=== PATIENT | male | born 1985 | race Hispanic/Latino ===

== ENCOUNTER 2017-11-07 17:36 | Emergency (ER) | payer SELFPAY | END 2017-11-07 18:04 | disposition left against medical advice (07) | LOC: EDH 17:36 | DX: R10.9 Unspecified abdominal pain (principal); Z53.21 Procedure and treatment not carried out due to patient leaving prior to being seen by health care provider ==

== ENCOUNTER 2018-10-02 12:27 | Emergency (ER) | payer SELFPAY ==
[2018-10-02] MEDS ORDERED: KETOROLAC TROMETHAMINE 60 MG/2 ML VIAL ONE (14:03)
== END 2018-10-02 14:53 | disposition home or self-care (01) ==
LOC: EDH 12:27
DX: S30.0XXA Contusion of lower back and pelvis, initial encounter (principal); W18.39XA Other fall on same level, initial encounter; Y93.01 Activity, walking, marching and hiking; Y92.89 Other specified places as the place of occurrence of the external cause; Y99.8 Other external cause status
CPT/HCPCS: 72100; 72170; 96372; 99283; J1885

== ENCOUNTER 2019-03-13 14:54 | Inpatient (IN) | payer SELFPAY, OTHER | END 2019-03-17 12:56 | disposition left against medical advice (07) | LOC: EDH 14:54 → EDHIP 14:55 → 2CH 16:35 | DX: F14.10 Cocaine abuse, uncomplicated (principal); F10.129 Alcohol abuse with intoxication, unspecified ==

== ENCOUNTER 2019-12-17 12:03 | Emergency (ER) | payer SELFPAY ==
[2019-12-17] MEDS ORDERED: KETOROLAC TROMETHAMINE 60 MG/2 ML VIAL ONE (12:42)
== END 2019-12-17 13:28 | disposition home or self-care (01) ==
LOC: EDH 12:03
DX: M54.5 Low back pain (principal)
CPT/HCPCS: 72100; 96372; 99283; J1885

== ENCOUNTER 2022-09-02 22:03 | Emergency (ER) | payer OTHER ==
[~2022-09-02] VITALS: Ht 180.3 cm; Wt 96.2 kg
[2022-09-03] MEDS ORDERED: AZIT500T PO (01:25)
[2022-09-03 01:38] VITALS: BP 120/81
== END 2022-09-03 01:39 | disposition home or self-care (01) ==
LOC: EDH 22:03
DX: J32.9 Chronic sinusitis, unspecified (principal); J06.9 Acute upper respiratory infection, unspecified; Z20.822 Contact with and (suspected) exposure to COVID-19
CPT/HCPCS: 99283; 87635; 87804 ×2; C9803

== ENCOUNTER 2022-09-26 09:47 | Emergency (ER) | payer OTHER ==
[~2022-09-26] VITALS: Ht 180.3 cm; Wt 94.3 kg
[~2022-09-26 09:47] MED LIST: AZIT500T PO
[2022-09-26 09:49] VITALS: BP 112/72
[2022-09-26] MEDS ORDERED: KETOROLAC 15MG/ML VIAL (15MG/ML) ONE (10:23)
[2022-09-26] MEDS ORDERED: DEXAMETHASONE SOD PHOSPHATE 4 MG/ML 1ML VIAL ONE (10:24)
[2022-09-26] MEDS ORDERED: DEXAMETHASONE SOD PHOSPHATE 4 MG/ML 1ML VIAL IVP ONE (10:30)
[2022-09-26] MEDS ORDERED: KETOROLAC 15MG/ML VIAL (15MG/ML) IV ONE (10:30)
[2022-09-26 10:45] LABS: BASOPHILS % (AUTO) 0.4 % (0.0-5.0); EOSINOPHILS % (AUTO) 1.6 % (0.0-8.0); HEMATOCRIT 44.1 % (42-54); LYMPHOCYTES % (AUTO) 13.3 % (21.0-51.0); MEAN CORPUSCULAR HEMOGLOBIN 29.6 pg (27.0-33.0); MEAN CORPUSCULAR HGB CONC 33.3 g/dL (32.0-36.0); MEAN CORPUSCULAR VOLUME 88.7 fL (79-99); MONOCYTES % (AUTO) 14.5 % (3.0-13.0); NEUTROPHILS % (AUTO) 69.7 % (40.0-77.0); PLATELET COUNT (AUTO) 197 K/uL (130-400); RED BLOOD CELL COUNT(AUTO) 4.97 MIL/uL (4.50-6.20); RED CELL DISTRIBUTION WIDTH 12.5 % (11.0-15.5); WHITE BLOOD COUNT (AUTO) 7.7 K/uL (4.8-10.8)
[2022-09-26 10:57] LABS: ALBUMIN 2.8 g/dL (3.5-5.0); CREATININE 0.8 mg/dL (0.5-1.5); TOTAL PROTEIN, SERUM 6.6 g/dL (6.0-8.3)
[2022-09-26] MEDS ORDERED: METH4TAB3 PO (11:19)
[2022-09-26] MEDS ORDERED: NAPR-1180 PO (11:19)
== END 2022-09-26 11:29 | disposition home or self-care (01) ==
LOC: EDH 09:47
DX: M25.571 Pain in right ankle and joints of right foot (principal); M25.572 Pain in left ankle and joints of left foot; M19.072 Primary osteoarthritis, left ankle and foot; M19.071 Primary osteoarthritis, right ankle and foot
CPT/HCPCS: 99284; 96374; 96375; 80053; 85025; 86140; 36415; J1100; J1885

== ENCOUNTER 2024-07-01 22:33 | Emergency (ER) | payer BC ==
[~2024-07-01] VITALS: Ht 180.3 cm; Wt 96.2 kg
[~2024-07-01 22:33] MED LIST changes: +METH4TAB3 PO; +NAPR-1180 PO
[2024-07-01 22:34] VITALS: BP 129/81; PULSE 83; RESP 16; TEMP 97.2
[2024-07-01] MEDS ORDERED: morPHINE 2 MG SYG IVP STA (22:47)
[2024-07-01] MEDS ORDERED: ondanSETRON 4MG INJ IVP STA (22:47)
--- NOTE | 2024-07-01 23:25 | ERN ---
ED Note History of Present Illness Stated Complaint: " HERNIA PAIN" Chief Complaint: Abdominal Pain Time Seen by MD: 22:35 Time Seen by Midlevel: 22:40 Dictation: 39-year-old male coming in complaining of hernia pain. Patient states it has been going on for two months, has seen the PCP but states did not set him up until September. Patient states last BM was yesterday, and vomited today 4 times. Denies any other medical history. Allergies: Coded Allergies: No Known Drug Allergies (Unverified Allergy, Unknown, 03/13/19) Home Meds Active Scripts Methylprednisolone (Medrol) 4 Mg Tab.ds.pk, 4 MG PO AD for 5 Days, #1 KIT Prov:NIURKA ABEBE MD 09/26/22 Naproxen (Naprosyn) 500 Mg Tablet, 500 MG PO BIDPC for 15 Days, #30 TAB 0 Refills Prov:NIURKA ABEBE MD 09/26/22 Azithromycin (Zithromax) 500 Mg Tablet, 500 MG PO DAILY for 5 Days, #6 TAB 2 tablets day 1 , 1 tablet day 2 througyh 5 Prov:SULY LAN MD 09/03/22 Past Medical History Past Medical History: Other Additional Past Medical Hx: ABD HERNIA Surgical History: None Social History: Negative, Lives with family Review of System Dictation Constitutional: Negative for fever,chills, and weight loss Eyes: Negative for injury, pain,redness, and discharge ENT: Negative for injury,pain or swelling Cardiovascular: Negative for chest pain, palpitations, and edema Respiratory: Negative for shortness of breath, cough, and wheezing, Abdomen/GI: Positive for abdominal pain, nausea, vomiting, no diarrhea, and no constipation Back: Negative for injury and pain : Negative for injury, bleeding and discharge MS/Extremity: Negative for injury and deformity Skin: Negative for rash, and discoloration Neuro: Negative for headache, weakness, numbness, tingling, and seizure Psych: Negative for suicide ideation, homicidal ideation, and hallucinations Review of Systems: was completed Initial Vital Sign VS Vital Signs Date Time Temp Pulse Resp B/P (MAP) Pulse Ox O2 Delivery O2 Flow Rate FiO2 07/01/24 22:34 97.2 83 16 129/81 99 Room Air Physical Exam Dictation General: awake, alert, NAD Head/Face: Normocephalic, atraumatic Eyes: PERRL, EOMI, vision at baseline ENT: oral cavity clear, TMs clear, no signs of infection Neck: Trachea midline, supple, no nuchal rigidity Cardiovascular: RRR, normal S1/S2, No MRGs, no JVD Respiratory: CTAB, no respiratory distress, No rales or wheezes Abdomen: Soft, non-tender, non-distended, there is a protrusion along the umbilical area consistent with a hernia, normal bowel sounds, no guarding or rebound. Skin: Warm, dry, normal turgor, no rash MS/Extremity: Pulses equal, no cyanosis, neurovascular intact, FROM Neuro: COAx4, GCS 15, strength 5/5, CN 2-12 intact, normal cerebellar exam, normal gait, Psych: Normal behavior, mood, and affect normal Results (Laboratory/Radiology) Labs Reviewed?: Yes ED Course ED Course Orders Procedure Category Date Status Time Morphine 2mg Syg PHA 07/01/24 Complete (Morphine 2mg Syg) 22:47 Ondansetron 4mg Inj PHA 07/01/24 Complete (Zofran 4mg Inj) 22:47 Current Medications Medications (Trade) Dose Ordered Sig/Felicia Route PRN Reason Start Time Stop Time Status Last Admin Dose Admin Morphine Sulfate (morPHINE 2MG SYG) 2 mg ONCE STAT IVP 07/01/24 22:47 07/01/24 22:48 DC Ondansetron HCl (zoFRAN 4MG INJ) 4 mg ONCE STAT IVP 07/01/24 22:47 07/01/24 22:48 DC Vital Signs Date Time Temp Pulse Resp B/P (MAP) Pulse Ox O2 Delivery O2 Flow Rate FiO2 07/01/24 22:34 97.2 83 16 129/81 99 Room Air Medical Decision Making MDM MDM: 39-year-old male coming in complaining of hernia pain. Patient states it has been going on for two months, has seen the PCP but states did not set him up until September. Patient states last BM was yesterday, and vomited today 4 times. Denies any other medical history. Patient decided to leave AMA [id number], his children were discharged and stated he felt better so he signed out AMA. Differential diagnosis: Incarcerated hernia, small bowel obstruction, gastroenteritis, constipation Rationale: Tests considered and ordered secondary to shared decision making include: Previous outside records reviewed: Old ER visits. Risk of complication and/or morbidity or mortality of patient management: None Medications-Per medication reconciliation Need for hospitalization: Patient does not meet criteria for hospitalization. Need for emergency major/minor surgery: No There are no social concerns with this patient. Prescription drug management Prescriptions will include symptomatic care Patient's prior external medical records from other ER visits were reviewed by me as indicated. Prior testing and results from previous visits were reviewed. Prior tests were taken into account with medical decision making and resource utilization, independent historian/historians were used to obtain complete medical history. I independently interpreted the test that were performed, results were reviewed by me and considered findings on radiology if ordered. Medical management and examination interpretation discussions were had by me with other qualified healthcare professionals as indicated for the patient's care. DX & DISP Disposition: AMA Departure Impression: Primary Impression: Hernia Condition: Stable Referrals: SELF,REFERRAL (PCP) Time of Disposition: 00:01 I have reviewed the case, and I agree with, Diagnosis and Plan LILY WHYTE NP Jul 01, 2024 23:25
== END 2024-07-02 00:01 | disposition left against medical advice (07) ==
LOC: EDH 22:33
DX: K42.9 Umbilical hernia without obstruction or gangrene (principal); Z79.899 Other long term (current) drug therapy
CPT/HCPCS: 99281